=== PATIENT | female | born 1955 | race Caucasian/White ===

== ENCOUNTER → 2018-07-05 | Outpatient (CLI) | payer OTHER ==
[~2018-07-05] VITALS: Ht 162.6 cm; Wt 98.4 kg
[~2018-07-05] MED LIST: LIDOCAINE 1% INJ 20 ML 20 ML VIAL INJ ONE
--- NOTE | 2018-07-05 17:56 | Diagnostic Imaging Report ---
INDICATION: Right breast calcifications. The patient presents for stereotactic biopsy. PROCEDURE: Patient's mammogram from 05/15/2018 was reviewed. Patient was brought to the stereotactic suite and placed in a chair in sitting upright position. The right breast was positioned in the CC manner. Suspicious cluster of microcalcifications in the upper and outer aspect of the right breast at posterior depth were stereotactically targeted. The right breast was then prepped and draped in the usual sterile fashion. A small amount of 1% lidocaine was utilized for local anesthesia. An 8 gauge stereotactic needle was advanced into the right breast from a superior approach and placed per stereotactic coordinates. A total of four core biopsies were obtained utilizing the vacuum assisted device. Specimen radiograph was obtained. Images were reviewed on dedicated mammographic workstation. Specimen radiograph does show numerous clusters of calcifications wit samples labeled #1 and #2. A marker clip was then deployed. Needle was withdrawn and hemostasis was obtained using manual compression. Followup 2D CC and ML mammogram was then obtained. Marker clip is identified in the upper and outer aspect of the right breast at posterior depth. There is soft tissue gas from recent biopsy. IMPRESSION: Successful stereotactic biopsy of clustered microcalcifications in the upper outer right breast, posterior depth, as described. Pathology results are currently pending. Dictated by: Dictated on workstation # [id number]
== END ==
LOC: RAD 10:06
PROVIDERS: ATTEND Nurse Practitioner Family
DX: N63.10 Unspecified lump in the right breast, unspecified quadrant (principal); R92.0 Mammographic microcalcification found on diagnostic imaging of breast
CPT/HCPCS: 19081